=== PATIENT | female | born 1965 | race Caucasian/White ===

== ENCOUNTER 2023-05-16 19:17 | Inpatient (IN) | payer MEDICARE, SELFPAY ==
--- NOTE | ~2023-05-16 | XR_ITS ---
EXAMINATION: Left tibia and fibula and left foot. Clinical indication: Tender to palpate fourth metatarsal with swelling and ecchymosis COMPARISON: None. TECHNIQUE: Left tibia and fibula 2 views. Left foot 3 views. FINDINGS: LEFT TIBIA AND FIBULA: There is no visible fracture, dislocation or subluxation seen. The soft tissues are normal. LEFT FOOT: There is no visible acute fracture, dislocation or subluxation seen. There is mild loss of first MTP joint space. No visible fracture or dislocation seen. The soft tissues are normal. XR/XR foot LT 2V IMPRESSION: 1. Unremarkable left tibia and fibula exam. 2. Unremarkable left foot exam except for mild loss of first MTP joint space. No visible acute fracture or dislocation seen.
--- NOTE | ~2023-05-16 | XR_ITS ---
EXAMINATION: Left tibia and fibula and left foot. Clinical indication: Tender to palpate fourth metatarsal with swelling and ecchymosis COMPARISON: None. TECHNIQUE: Left tibia and fibula 2 views. Left foot 3 views. FINDINGS: LEFT TIBIA AND FIBULA: There is no visible fracture, dislocation or subluxation seen. The soft tissues are normal. LEFT FOOT: There is no visible acute fracture, dislocation or subluxation seen. There is mild loss of first MTP joint space. No visible fracture or dislocation seen. The soft tissues are normal. XR/XR tibia fibula LT 2V IMPRESSION: 1. Unremarkable left tibia and fibula exam. 2. Unremarkable left foot exam except for mild loss of first MTP joint space. No visible acute fracture or dislocation seen.
[2023-05-16 19:27] VITALS: PULSE 108; O2SAT 98; BMI 23.8
--- NOTE | 2023-05-16 20:01 | PC.NURSE ---
pt changed over belongings in pod. pt denies si/hi.
--- NOTE | 2023-05-16 20:09 | ED_ITS ---
HPI - General Adult General Chief complaint: General Medical Stated complaint: PTSD EPISODE,BI POLAR NON-MED COMPLIANT Time Seen by Provider: 05/16/23 20:02 Source: patient Mode of arrival: ambulatory Limitations: no limitations History of Present Illness HPI narrative: 57 year old female with history of bipolar presents to the ED for being found in car being irrational any and unkept. Patient has been noncompliant with his psych meds. Patient denies any suicidal homicidal ideation. Related Data Allergies Allergy/AdvReac Type Severity Reaction Status Date / Time No Known Allergies Allergy Verified 05/16/23 20:08 [facility] Social History Social History Advance Directives: No Advance Directives Information Provided: No Physical Exam ED Vital Signs: BMI result Body Mass Index 23.8 Const General: cooperative, healthy appearing, comfortable, no acute distress and well developed Orientation/consciousness: oriented to person, oriented to place, oriented to time and patient oriented x3 HENMT Head: Yes normal to inspection, Yes No palpable skull fracture present, Yes normocephalic and Yes atraumatic Eyes General: appearance normal, both eyes and all related structures Neck Neck: Yes normal visual inspection, Yes full ROM, Yes no lymphadenopathy, Yes no meningeal signs, Yes trachea midline, Yes supple, No anterior neck swelling and No tender Chest Chest palpation & inspection: normal inspection of the chest and normal palpation of entire chest wall Resp Effort & Inspection: normal respiratory effort and able to speak in complete sentences Auscultation: clear to auscultation bilaterally Cardio Jugular venous distension: no JVD Heart sounds: S1 normal heart sound present and S2 normal heart sound present GI Inspection: Yes normal to inspection Palpation (GI): Soft to palpation, not firm, nontender, no guarding and not rigid General: Yes no CVA tenderness Back/Spine/Pelvis Back: no CVA tenderness and No back tenderness Skin General skin exam: no rashes or lesions noted, elasticity normal and turgor normal Neuro General: oriented to person, oriented to place, oriented to time, patient oriented x3, gait normal, tone normal, moves all extremities, Normal light touch and pain sensation, no meningeal signs, no focal motor deficits, CN's II-XI intact bilaterally and normal sensation to monofilament Extrem General: Yes normal to inspection and Yes full ROM Psych Appearance: disheveled Medical Decision Making Medical Decision Making MDM Narrative: 57 yold female with pmh of bipolar presents to the ED for being noncompliant with her meds and be in her car. Labs ordered. Care consult team placed. 1:55pm: Patient started exposing herself to staff and screaming and being a professional and threatening. Patient was placed in restraints but before was medicated. Differential Diagnosis Differential Diagnoses: The differential diagnosis associated with the presentation includes (Bipolar) Admission/Observation Consideration of admission/observation: Escalation of care including admission/observation considered Consult Healthcare Provider Management of the patient was discussed with: Topographical Field Assistant (Care) Lab Data [facility] Lab Attestation statement: I reviewed the patient's lab results. 05/16/23 20:29 05/16/23 20:29 Labs: Lab Results 05/16/23 Range/Units 20:29 WBC 9.9 (4.8-10.8) X10*3/uL RBC 4.66 (4.20-5.50) X10*6/uL Hgb 14.5 (12.0-16.0) g/dl Hct 43.0 (37.0-47.0) % MCV 92.3 (80.0-98.0) fL MCH 31.1 (27.0-33.0) pg MCHC 33.7 (31.0-35.0) g/dl RDW 13.1 (11.0-16.0) % Plt Count 391 (160-400) X10*3/uL MPV 8.4 L (9.4-12.3) fL Immature Gran % (Auto) 0.3 (0.0-0.4) % Neut % (Auto) 62.1 (45-73) % Lymph % (Auto) 29.5 (20-40) % Reeves % (Auto) 5.4 (2-11) % Eos % (Auto) 2.0 (0-4) % Baso % (Auto) 0.7 (0-2) % Lymph # (Auto) 2.9 (1.2-4.9) X10*3/uL Reeves # (Auto) 0.5 (0.1-1.2) X10*3/uL Eos # (Auto) 0.2 (0.0-0.4) X10*3/uL Baso # (Auto) 0.1 (0.0-0.2) X10*3/uL Abs Immat Gran (auto) 0.03 (0.00-0.03) X10*3/uL Absolute Neuts (auto) 6.1 (2.0-8.3) x10*3/uL Absolute Nucleated RBC 0.000 (0.0-0.012) X10*3/uL Nucleated RBC % (auto) 0.0 (0.0-0.2) /100WBC Sodium 143 (135-145) mmol/L Potassium 3.7 (3.3-5.1) mmol/L Chloride 107 (96-108) mmol/L Carbon Dioxide 25 (22-29) mmol/L Anion Gap 15 (12-20) BUN 12 (9-16) mg/dL Creatinine 0.81 (0.5-1.4) mg/dL Estim Creat Clear Calc 59.8 Estimated GFR > 60 Random Glucose 153 H (60-115) mg/dL Calcium 9.3 (8.4-10.2) mg/dL Total Bilirubin 0.7 (0.0-1.0) mg/dL AST 24 (5-31) U/L ALT 24 (0-31) U/L Alkaline Phosphatase 91 (39-117) U/L Total Protein 7.8 (6.5-8.0) g/dL Albumin 4.4 (3.5-5.0) g/dL Ethyl Alcohol < 10 mg/dL Independent Historian Clinical information obtained from an independent historian. History obtained from or confirmed by: EMS External Record Review External record reviewed: Other (Prior visit) Discharge Plan Discharge Clinical Impression: Bipolar 1 disorder Patient Disposition: Still a Patient Instructions: Bipolar Disorder (ED)
[2023-05-16 20:34] LABS: MANUAL DIFF FLAG NO
[2023-05-16 20:37] LABS: Basophils Absolute Auto 0.1 X10*3/uL (0.0-0.2); Basophils Percent Auto 0.7 % (0-2); Eosinophils Absolute Auto 0.2 X10*3/uL (0.0-0.4); Hemoglobin 14.5 g/dl (12.0-16.0); Imm Gran Abs Auto 0.03 X10*3/uL (0.00-0.03); Imm Gran Pct Auto 0.3 % (0.0-0.4); Lymphocytes Absolute Auto 2.9 X10*3/uL (1.2-4.9); Lymphocytes Percent Auto 29.5 % (20-40); Mean Corpuscular HGB Conc 33.7 g/dl (31.0-35.0); Mean Corpuscular Hemoglobin 31.1 pg (27.0-33.0); Mean Corpuscular Volume 92.3 fL (80.0-98.0); Mean Platelet Volume 8.4 fL (9.4-12.3); Monocytes Absolute Auto 0.5 X10*3/uL (0.1-1.2); Monocytes Percent Auto 5.4 % (2-11); Neutrophils Absolute Auto 6.1 x10*3/uL (2.0-8.3); Neutrophils Percent Auto 62.1 % (45-73); Platelet Count 391 X10*3/uL (160-400); Red Blood Count 4.66 X10*6/uL (4.20-5.50); Red Cell Distribution Width 13.1 % (11.0-16.0); White Blood Count 9.9 X10*3/uL (4.8-10.8)
[2023-05-16 21:00] LABS: Alanine Aminotransferase 24 U/L (0-31); Albumin Level 4.4 g/dL (3.5-5.0); Alkaline Phosphatase 91 U/L (39-117); Anion Gap 15 (12-20); Aspartate Amino Transferase 24 U/L (5-31); Bilirubin Total 0.7 mg/dL (0.0-1.0); Blood Urea Nitrogen 12 mg/dL (9-16); Calcium 9.3 mg/dL (8.4-10.2); Carbon Dioxide 25 mmol/L (22-29); Chloride 107 mmol/L (96-108); Creatinine Clr Calc Pharmacy 59.8; Estimated Glomerular Filt Rate > 60; Ethanol < 10 mg/dL; Glucose Random 153 mg/dL (60-115); Potassium 3.7 mmol/L (3.3-5.1); Sodium 143 mmol/L (135-145); Total Protein 7.8 g/dL (6.5-8.0)
--- NOTE | 2023-05-17 00:35 | MHC.EDTECH ---
pt belongings in locker #1
--- NOTE | 2023-05-17 01:45 | PC.NURSE ---
patient to express her displeasure of our non locking bathroom door by exposing her naked posterior in an offensive fashion to staff. client makes many statements how she doesnt feel she likes our services i didnt get xrays, i need an IV underwriting support manager attempt to help client to obtain urine sample.
[2023-05-17 01:55] VITALS: RESP 13
[2023-05-17] MEDS: Haloperidol Lactate 5 MG/ML VIAL IM (01:55)
[2023-05-17] MEDS: LORazepam 2 MG/ML VIAL IM (01:55)
[2023-05-17] MEDS: diphenhydrAMINE HCL 50 MG/ML VIAL IM (01:55)
[2023-05-17 02:10] VITALS: BP 147/85; PULSE 100; RESP 18; O2SAT 96
[2023-05-17 02:25] VITALS: BP 149/90; PULSE 97; RESP 18; O2SAT 96
--- NOTE | 2023-05-17 02:30 | PC.NURSE ---
patient escalated posturing twoards staff singing loudly to express displeasure and obtain
[2023-05-17 02:40] VITALS: BP 128/84; PULSE 84; RESP 16; O2SAT 96
--- NOTE | 2023-05-17 11:22 | PC.NURSE ---
Patient just woke up asked when breakfast will be here. Told her breakfast is already in her room. Asked if she is going to use the restroom we need a urine sample. Patient states forgot to void in the cup.
--- NOTE | 2023-05-17 12:51 | PC.NURSE ---
Mother of patient called left tel# [phone] Maryam Edmondson states she lives in [place].
--- NOTE | 2023-05-17 13:08 | PC.NURSE ---
Dr. Burrows notified patient is getting irate wants vape or smoke cigarettes or would like a valium started banging on glass. called security they spoke to her. Care team came at about 1334 to speak to patient. ? need for nicotine replacement.
[2023-05-17] MEDS: Nicotine 21 MG PATCH.TD24 TRANSDERMA (14:12)
[2023-05-17 14:36] LABS: Appearance Urine Cloudy; Color Urine Yellow; Glucose Urine UA Negative (Negative); Leukocyte Esterase Urine Large (3+) (Negative); Nitrite Urine Negative (Negative); PH 5.5 (5.0-9.0); Specific Gravity - Urine 1.015 (1.005-1.025); UMIC TRIGGER UACC YES; Urine Blood Small (1+) (Negative); Urine Ketones Negative (Negative); Urine Protein 30 (1+) mg/dL (Neg-Trace)
[2023-05-17 14:39] LABS: UPreg QC Valid YES; Urine Pregnancy NEGATIVE (NEGATIVE)
[2023-05-17 14:42] LABS: Amphetamine Screen Urine Not Detected (Not Detect); Barbiturates, Urine Not Detected (Not Detect); Benzodiazepines Screen Urine Not Detected (Not Detect); Cannabinoid Screen Urine POSITIVE (Not Detect); Cocaine Screen Urine Not Detected (Not Detect); Fentanyl, urine Not Detected (Not Detect); Opiate Screen Urine Not Detected (Not Detect); Phencyclidine Screen Urine Not Detected (Not Detect)
[2023-05-17 14:51] LABS: Bacteria Urine 1+ (None Seen); Hyaline Casts Urine 0-2 /LPF (0-2); RBC Urine 0-2 /HPF (0-2); UACC Culture Trigger YES; WBC Urine >50 /HPF (0-5)
[2023-05-17] MEDS: Nicotine Polacrilex 2 MG GUM BUCCAL (15:08)
[2023-05-17 15:33] LABS: COVID-19 Test Negative (Negative); IDNOW Serial# 152EDE1D
--- NOTE | 2023-05-17 19:16 | MHC.CARE ---
Received call from patient's yesi Reardon. [facility] is [facility] in [place], [place]
--- NOTE | 2023-05-17 19:20 | PC.NURSE ---
Pt handed a note with instructions for the medications she will and woon't take. Per note: pt will take zyprexa for sleep, ativan for anxiety, and a pediatric dose of lithium. Pt will not take wellbutrin (hard to ween off), seroquil (SI off 2 doses), and prozac (it doesn't work). [facility] is [facility] in [place], [place]
[2023-05-17 19:56] VITALS: BP 148/74; PULSE 95; RESP 16; TEMP 36.4; O2SAT 98
--- NOTE | 2023-05-17 19:57 | PC.NURSE ---
Addendum entered by Dawna Estes RN 05/17/23 20:27: RN from stated to hold on giving medications, and pt will be medicated upstairs Original Note: Visitor left, report given to Ms, they are on their way to receive the pt.
--- NOTE | 2023-05-17 19:58 | MHC.EDTECH ---
This tech took over care AT 1900. PT visitor left. PT vitals were taken at this time. PT was calm, cooperative and soni in bed. PT is waiting to be transported on to floor.
[2023-05-17] MEDS: diazePAM 5 MG TABLET PO (23:44)
--- NOTE | 2023-05-18 | ECG_ITS ---
Test Reason : qtc check Blood Pressure : / mmHG Vent. Rate : 089 BPM Atrial Rate : 089 BPM P-R Int : 126 ms QRS Dur : 080 ms QT Int : 358 ms P-R-T Axes : 041 052 029 degrees QTc Int : 435 ms Normal sinus rhythm Normal ECG No previous ECGs available Referred By: Ana Cardona Electronically Signed By:Milad Mercer
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
[2023-05-18] MEDS: Nicotine Polacrilex 2 MG GUM BUCCAL (03:19)
[2023-05-18] MEDS: Acetaminophen 325 MG TABLET 650 MG PO (05:46)
[2023-05-18 08:15] VITALS: BP 167/79; PULSE 83; RESP 20; TEMP 36.4; O2SAT 99
[2023-05-18 08:33] LABS: Alanine Aminotransferase 28 U/L (0-31); Albumin Level 4.3 g/dL (3.5-5.0); Alkaline Phosphatase 85 U/L (39-117); Anion Gap 12 (12-20); Aspartate Amino Transferase 31 U/L (5-31); Bilirubin Total 0.3 mg/dL (0.0-1.0); Blood Urea Nitrogen 19 mg/dL (9-16); Calcium 9.3 mg/dL (8.4-10.2); Carbon Dioxide 26 mmol/L (22-29); Chloride 104 mmol/L (96-108); Cholesterol 176 mg/dL (<200); Creatinine Clr Calc Pharmacy 57.7; Estimated Glomerular Filt Rate > 60; Glucose Fasting 147 mg/dL (60-99); HDL Cholesterol 34 mg/dL (>40); LDL Cholesterol Calculated 109 mg/dL (<100); Potassium 3.9 mmol/L (3.3-5.1); Sodium 138 mmol/L (135-145); Total Protein 7.3 g/dL (6.5-8.0); Triglycerides 167 mg/dL (<150)
--- NOTE | 2023-05-18 10:24 | PC.NURSE ---
Patient refused the Influenza vaccination.
[2023-05-18] MEDS: LORazepam 1 MG TABLET PO (12:45)
[2023-05-18] MEDS: OLANZapine ODT 10 MG TAB.RAPDIS TRANSLINGU (12:45)
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
[2023-05-18] MEDS: Lithium Carbonate 300 MG TABLET 150 MG PO (16:05)
[2023-05-18 21:02] VITALS: BP 131/87; PULSE 75; RESP 16; TEMP 36.1; O2SAT 99
[2023-05-18] MEDS: levoFLOXacin 250 MG TABLET PO (22:51)
--- NOTE | 2023-05-18 22:53 | PC.NURSE ---
Kayla refused her HS lithium and Zyprexa stating that she was too sedated to take any other medication.
[2023-05-19] MEDS: Nicotine Polacrilex Lozenge 4 MG LOZENGE BUCCAL (04:37)
[2023-05-19 07:58] VITALS: BP 188/87; PULSE 82; RESP 18; TEMP 36.2; O2SAT 99
[2023-05-19] MEDS: Lithium Carbonate 300 MG TABLET 150 MG PO ×2 (08:25→20:30)
[2023-05-19] MEDS: LORazepam 1 MG TABLET PO (11:51)
[2023-05-19 12:39] LABS: TSH reflex Free T4 3.17 uIU/mL (0.32-4.0)
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
[2023-05-19] MEDS: levoFLOXacin 250 MG TABLET PO (14:51)
[2023-05-19 16:22] VITALS: BP 190/96; PULSE 90; RESP 17; TEMP 36.2; O2SAT 97
[2023-05-19] MEDS: Nicotine Polacrilex Lozenge 2 MG LOZENGE BUCCAL ×2 (16:45→20:34)
[2023-05-19] MEDS: LORazepam 0.5 MG TABLET PO (20:30)
[2023-05-19] MEDS: OLANZapine ODT 10 MG TAB.RAPDIS TRANSLINGU (20:30)
[2023-05-19 21:58] VITALS: BP 186/86; PULSE 90
[2023-05-20 08:00] VITALS: BP 189/97; PULSE 102; RESP 18; TEMP 36.3; O2SAT 95
[2023-05-20] MEDS: Lithium Carbonate 300 MG TABLET 150 MG PO ×2 (08:09→19:49)
[2023-05-20] MEDS: OLANZapine 5 MG TABLET PO (08:09)
[2023-05-20] MEDS: LORazepam 0.5 MG TABLET PO ×2 (08:09→19:49)
[2023-05-20] MEDS: levoFLOXacin 250 MG TABLET PO (15:15)
[2023-05-20] MEDS: amLODIPine Besylate 2.5 MG TABLET PO (15:15)
[2023-05-20 15:16] VITALS: BP 182/97
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
[2023-05-20 18:00] VITALS: BP 185/93; PULSE 108; RESP 16
[2023-05-20] MEDS: OLANZapine ODT 10 MG TAB.RAPDIS TRANSLINGU (19:50)
[2023-05-20] MEDS: amLODIPine Besylate 5 MG TABLET PO (19:53)
--- NOTE | 2023-05-21 | ECG_ITS ---
Test Reason : qtc Blood Pressure : / mmHG Vent. Rate : 075 BPM Atrial Rate : 075 BPM P-R Int : 156 ms QRS Dur : 080 ms QT Int : 390 ms P-R-T Axes : 057 050 055 degrees QTc Int : 435 ms Normal sinus rhythm Normal ECG When compared with ECG of 18-MAY-2023 13:15, No significant change was found Referred By: Ana Cardona Electronically Signed By:Milad Mercer
[2023-05-21] MEDS: OLANZapine ODT 10 MG TAB.RAPDIS TRANSLINGU (00:41)
[2023-05-21 06:00] VITALS: BP 197/90; PULSE 87; RESP 18; TEMP 36.6; O2SAT 98
[2023-05-21] MEDS: Lithium Carbonate 300 MG TABLET 150 MG PO ×2 (09:04→19:56)
[2023-05-21] MEDS: OLANZapine 5 MG TABLET PO (09:04)
[2023-05-21] MEDS: LORazepam 0.5 MG TABLET PO (09:04)
[2023-05-21] MEDS: amLODIPine Besylate 2.5 MG TABLET PO (09:04)
[2023-05-21 11:14] VITALS: BMI 25.5
--- NOTE | 2023-05-21 15:37 | HO.PSYCHPN ---
Subjective Subjective Date of Service: 05/21/23 Reason For Visit: Deidre Subjective Notes: Conditional Voluntary and 3 Day Healthcare Proxy: No Guardianship: No Medical Problems Affecting Mental Status: No Interim History: Pt seen and discussed in team; Pt presents less elevated; patient is less irritable. She presents with some sleepiness and reports feeling a little sedated. staff report she slept 3 hours last night; Pt compliant with medications. pt denies any UTI symptoms- no urgency, no pain or burning upon urination. [facility] agitated with staff at times. She denies SI or HI. Wants to leave hospital and go back to her fiancee's house. When asked about medication compliance after discharge she says she'll take the medication if she thinks she needs them. She reports she is only upset because she is here in the hospital. She is focused on discharge tomorrow. Pt is eating and drinking fluids. She denies auditory or visual hallucinations. She denies suicidal or homicidal ideation. She denies depression. discussed continued treatment after discharge which patient states she is interested in. Pt continues to have mood symptoms but not able to be committed. Medication Compliance: Yes Side effects from medications: Yes (daytime sleepiness) Attending Groups: Intermittent Review of Systems Acute medical concerns: No Medical Review of Systems: unchanged Review of Systems Review of Systems Yes all other systems are reviewed and are negative Musculoskeletal: Reports other (left ankle with swelling and ecchymosis) Mental Status Exam Mental Status Exam Patient Appearance: Disheveled and Unkempt Patient Orientation: Person, Place and Situation Level of Consciousness: Awake and Restless Patient Behavior: Talkative, Hyperactive, Restless, Invasion - Personal Space and Distractible Mood Description: Labile and Angry Affect Description: Labile and Expansive Patient Cognition Impaired: Yes Ability to Follow Directions: Fair Speech Pattern: Perseverating, Rambling, Excessive, Animated and Pressured Memory Description: Episodic Impaired Hallucinations: None Delusions: Not Present Thought Process: Distracted Thought Content: positive for Goal Oriented Judgement: Poor Judgement and Insight: poor insight into illness poor judgment Diagnostics Vital Signs (24Hr): Vital Signs - 24 hr 05/20/23 18:00 05/21/23 06:00 Temperature 97.9 F Pulse Rate 108 H 87 Respiratory Rate 16 18 Blood Pressure 185/93 H 197/90 H Pulse Oximetry 98 Oxygen Delivery Method Room Air BMI result Body Mass Index 25.5 Labs 05/16/23 20:29 05/18/23 08:04 Imaging Radiology Impressions: ITS Impressions Foot X-Ray 05/18/23 14:32 IMPRESSION: 1. Unremarkable left tibia and fibula exam. 2. Unremarkable left foot exam except for mild loss of first MTP joint space. No visible acute fracture or dislocation seen. Tibia/Fibula X-Ray 05/18/23 14:32 IMPRESSION: 1. Unremarkable left tibia and fibula exam. 2. Unremarkable left foot exam except for mild loss of first MTP joint space. No visible acute fracture or dislocation seen. Medications Medications Current Medications Acetaminophen (Acetaminophen 325 Mg Tablet) 650 mg PO Q6H PRN PRN Reason: Headache/Pain Mild Scale (1-3) Last Admin: 05/18/23 05:46 Dose: 650 mg Al Hydroxide/Mg Hydroxide (Magnesium Hydrox/Alum Hydrox 30 Ml Oral.Susp) 30 ml PO Q6H PRN PRN Reason: Heartburn/Nausea Amlodipine Besylate (Amlodipine Besylate 2.5 Mg Tablet) 2.5 mg PO DAILY [facility]; Protocol Last Admin: 05/21/23 09:04 Dose: 2.5 mg Ibuprofen (Ibuprofen 600 Mg Tablet) 600 mg PO Q6H PRN PRN Reason: pain and swelling lle [place] Carbonate ([place] Carbonate 300 Mg Tablet) 150 mg PO BID [facility] Last Admin: 05/21/23 09:04 Dose: 150 mg Lorazepam (Lorazepam 0.5 Mg Tablet) 0.5 mg PO Q6H PRN PRN Reason: anxiety/restlessness Lorazepam (Lorazepam 0.5 Mg Tablet) 0.25 mg PO BID [facility] Magnesium Hydroxide (Milk Of Magnesia 30 Ml Oral.Susp) 30 ml PO DAILY PRN PRN Reason: Constipation Nicotine Polacrilex (Nicotine Polacrilex Lozenge 2 Mg Lozenge) 2 mg BUCCAL Q2H PRN PRN Reason: tobacco Last Admin: 05/19/23 20:34 Dose: 2 mg Olanzapine (Olanzapine Odt 10 Mg Tab.Rapdis) 10 mg TRANSLINGU BEDTIME [facility]ON[facility] Last Admin: 05/20/23 19:50 Dose: 10 mg Olanzapine (Olanzapine Odt 10 Mg Tab.Rapdis) 10 mg TRANSLINGU DAILY PRN PRN Reason: deidre Last Admin: 05/21/23 00:41 Dose: 10 mg Olanzapine (Olanzapine 5 Mg Tablet) 5 mg PO DAILY [facility]ON[facility] Last Admin: 05/21/23 09:04 Dose: 5 mg Allergies Allergies Allergy/AdvReac Type Severity Reaction Status Date / Time No Known Allergies Allergy Verified 05/16/23 20:08 Assessment & Plan Assessment & Plan (1) Pain and swelling of left lower extremity: Status: Acute Code(s): M79.605 - Pain in left leg; M79.89 - Other specified soft tissue disorders (2) Bipolar I disorder with deidre: Status: Acute Code(s): F31.10 - Bipolar disorder, current episode manic without psychotic features, unspecified (3) Anxiety: Status: Acute Code(s): F41.9 - Anxiety disorder, unspecified Plan 57 year old female admitted to psychiatry with consult placed to hospitalist service for evaluation of pain and swelling of the LLE. Pt reports she was running in heels and tripped wtih inversion injury of the left ankle. per hospitalist consult for left jyothi: -XR as above -ibuprofen q6h prn for pain and swelling, can alternate with tylenol prn -recommend compression- soraya stocking ordered -Ice, elevation as needed -plan to be adjusted as indicated pending xr results psychiatry: 05/20/23 3 day notice signed up on Thursday 15 min checks encourage medication compliance continue olanzepine 5 mg in am continue zydis 10 mg at bedtime ativan 0.5mg BID Amlodipine Besylate (Amlodipine Besylate 2.5 Mg Tablet) 2.5 mg PO DAILY LEONOR; for HTN consider increase lithium if tolerates. encourage food and fluids continue to collect collateral information discharge planning with team 05/21/23 reduce ativan dose to 0.25mg BID and 0.5mg daily PRN due to daytime sedation discharge planning for tomorrow Patient educated on: diagnosis, medication risk/benefits and therapeutic strategies Informed Consent: does not understand Reason for continued inpatient stay Substantial Risk for: inability to function and rapid decompensation Time Spent With Patient Time: Total time managing care of this patient today ___30_ minutes.
[2023-05-21 18:00] VITALS: BP 169/82; PULSE 74; RESP 16; TEMP 36.6; O2SAT 99
[2023-05-21] MEDS: LORazepam 0.5 MG TABLET 0.25 MG PO (19:55)
[2023-05-21] MEDS: Nicotine Polacrilex 2 MG GUM BUCCAL (21:10)
[2023-05-22] MEDS: LORazepam 0.5 MG TABLET PO (02:39)
[2023-05-22] MEDS: Nicotine Polacrilex 2 MG GUM BUCCAL (02:39)
[2023-05-22 08:04] VITALS: BP 154/74; PULSE 98; RESP 18; TEMP 36.3; O2SAT 98
[2023-05-22] MEDS: amLODIPine Besylate 2.5 MG TABLET PO (08:12)
[2023-05-22] MEDS: OLANZapine 5 MG TABLET PO (08:12)
[2023-05-22] MEDS: LORazepam 0.5 MG TABLET 0.25 MG PO (08:13)
[2023-05-22] MEDS: Lithium Carbonate 300 MG TABLET 150 MG PO (08:13)
[2023-05-22 09:41] LABS: Alanine Aminotransferase 34 U/L (0-31); Albumin Level 4.1 g/dL (3.5-5.0); Alkaline Phosphatase 81 U/L (39-117); Anion Gap 12 (12-20); Aspartate Amino Transferase 25 U/L (5-31); Bilirubin Total 0.3 mg/dL (0.0-1.0); Blood Urea Nitrogen 12 mg/dL (9-16); Calcium 9.5 mg/dL (8.4-10.2); Carbon Dioxide 24 mmol/L (22-29); Chloride 108 mmol/L (96-108); Creatinine Clr Calc Pharmacy 82.4; Estimated Glomerular Filt Rate > 60; Glucose Fasting 92 mg/dL (60-99); Potassium 4.1 mmol/L (3.3-5.1); Sodium 140 mmol/L (135-145); Total Protein 7.1 g/dL (6.5-8.0)
[2023-05-22 09:42] LABS: Lithium 0.62 mmol/L (0.60-1.20)
--- NOTE | 2023-05-22 09:50 | P.DS_ITS ---
DS: Providers Provider Date of Service: 05/22/23 Date of admission: 05/17/23 19:18 Date of discharge: 05/22/23 Primary care physician: Unknown Physician Admitting clinician: Ana Cardona Attending physician on admission: Ana Cardona Consults: 05/18/23 12:34 Consult to Hospitalist Routine Comment: Consulting Provider: Hospitalist Reason For Exam: painful swollen left ankle Attending physician on discharge: Ana Cardona Discharging clinician: Ana Cardona DS: Diagnosis Discharge Diagnosis (1) Pain and swelling of left lower extremity: Start time: 19:30 Status: Acute (2) Bipolar I disorder with deidre: Start date: 05/17/23 Start time: 19:30 Status: Acute (3) Anxiety: Start date: 05/17/23 Start time: 19:30 Status: Acute DS: Medications Discharge Medications Home Medications: Previous Rx's Medication Instructions Recorded amlodipine 2.5 mg tablet 2.5 mg PO DAILY #15 tabs 05/22/23 lithium carbonate 300 mg tablet 150 mg (1/2 x 300 mg) PO BID #30 05/22/23 tabs lorazepam 0.5 mg tablet 0.25 mg (1/2 x 0.5 mg) PO BID #30 05/22/23 tabs olanzapine 10 mg disintegrating 10 mg translingual DAILY PRN deidre 05/22/23 tablet #15 tabs olanzapine 5 mg tablet 5 mg PO DAILY #15 tabs 05/22/23 Mental Status Exam Mental Status Exam Patient Appearance: Appropriate Patient Orientation: Person, Place and Situation Level of Consciousness: Awake and Drowsy Patient Behavior: Appropriate Mood Description: Angry Affect Description: Angry Patient Cognition Impaired: Yes Ability to Follow Directions: Fair Speech Pattern: Clear Memory Description: Episodic Impaired Hallucinations: None Thought Process: Goal Oriented Thought Content: positive for Goal Oriented Judgement: Poor Data Data Completed and Pending Completed studies during hospitalization [Text1]: 05/16/23 05/17/23 05/17/23 20:29 14:29 15:09 WBC 9.9 RBC 4.66 Hgb 14.5 Hct 43.0 MCV 92.3 MCH 31.1 MCHC 33.7 RDW 13.1 Plt Count 391 MPV 8.4 L Immature Gran % (Auto) 0.3 Neut % (Auto) 62.1 Lymph % (Auto) 29.5 [place] % (Auto) 5.4 Eos % (Auto) 2.0 Baso % (Auto) 0.7 Lymph # (Auto) 2.9 [place] # (Auto) 0.5 Eos # (Auto) 0.2 Baso # (Auto) 0.1 Abs Immat Gran (auto) 0.03 Absolute Neuts (auto) 6.1 Absolute Nucleated RBC 0.000 Nucleated RBC % (auto) 0.0 Sodium 143 Potassium 3.7 Chloride 107 Carbon Dioxide 25 Anion Gap 15 BUN 12 Creatinine 0.81 Estim Creat Clear Calc 59.8 Estimated GFR > 60 Random Glucose 153 H Fasting Glucose Calcium 9.3 Total Bilirubin 0.7 AST 24 ALT 24 Alkaline Phosphatase 91 Total Protein 7.8 Albumin 4.4 Triglycerides Cholesterol LDL Cholesterol, Calc HDL Cholesterol TSH Urine Color Yellow Urine Appearance Cloudy Urine pH 5.5 Ur Specific [place] 1.015 Urine Protein 30 (1+) H Urine Glucose (UA) Negative Urine Ketones Negative Urine Blood Small (1+) H Urine Nitrite Negative Ur Leukocyte Esterase Large (3+) H Urine RBC 0-2 Urine WBC >50 H Ur Squamous Epith Cells 3-5 Urine Bacteria 1+ Hyaline Casts 0-2 Urine Test NEGATIVE Urine Opiates Screen Not Detected Urine Fentanyl Screen Not Detected Ur Barbiturates Screen Not Detected Ur Phencyclidine Scrn Not Detected Ur Amphetamines Screen Not Detected U Benzodiazepines Scrn Not Detected [place] Urine Cocaine Screen Not Detected U Marijuana (THC) Screen POSITIVE H Ethyl Alcohol < 10 COVID-19 ([facility]) Negative COVID-19 Clin Com See Note 05/18/23 05/22/23 08:04 08:45 WBC RBC Hgb Hct MCV MCH MCHC RDW Plt Count MPV Immature Gran % (Auto) Neut % (Auto) Lymph % (Auto) [place] % (Auto) Eos % (Auto) Baso % (Auto) Lymph # (Auto) [place] # (Auto) Eos # (Auto) Baso # (Auto) Abs Immat Gran (auto) Absolute Neuts (auto) Absolute Nucleated RBC Nucleated RBC % (auto) Sodium 138 140 Potassium 3.9 4.1 Chloride 104 108 Carbon Dioxide 26 24 Anion Gap 12 12 BUN 19 H 12 Creatinine 0.84 0.65 Estim Creat Clear Calc 57.7 82.4 Estimated GFR > 60 > 60 Random Glucose Fasting Glucose 147 H 92 Calcium 9.3 9.5 Total Bilirubin 0.3 0.3 AST 31 25 ALT 28 34 H Alkaline Phosphatase 85 81 Total Protein 7.3 7.1 Albumin 4.3 4.1 Triglycerides 167 H Cholesterol 176 LDL Cholesterol, Calc 109 H HDL Cholesterol 34 L TSH 3.17 Urine Color Urine Appearance Urine pH Ur Specific [place] Urine Protein Urine Glucose (UA) Urine Ketones Urine Blood Urine Nitrite Ur Leukocyte Esterase Urine RBC Urine WBC Ur Squamous Epith Cells Urine Bacteria Hyaline Casts Urine Test Urine Opiates Screen Urine Fentanyl Screen Ur Barbiturates Screen Ur Phencyclidine Scrn Ur Amphetamines Screen U Benzodiazepines Scrn [place] 0.62 Urine Cocaine Screen U Marijuana (THC) Screen Ethyl Alcohol COVID-19 ([facility]) COVID-19 Clin Com 05/17/23 Unknown Urine clean catch - Clean Catch Midstream Urine Culture - Final Escherichia coli Imaging Diagnostic Imaging Impressions Foot X-Ray 05/18/23 14:32 IMPRESSION: 1. Unremarkable left tibia and fibula exam. 2. Unremarkable left foot exam except for mild loss of first MTP joint space. No visible acute fracture or dislocation seen. Tibia/Fibula X-Ray 05/18/23 14:32 IMPRESSION: 1. Unremarkable left tibia and fibula exam. 2. Unremarkable left foot exam except for mild loss of first MTP joint space. No visible acute fracture or dislocation seen. Cardiology Testing EKG NS DS: Summary Hospital Course Hospital Course: Patient was admitted on 05/16 for acute deidre. She was started on medication lithium and Zyprexa. She was compliant with medications. her mood was less elevated although she remained irritable. She was seen for medical consult due to swollen ankle x-ray showed no fracture. The swelling remitted during her stay. She continued to sleep poorly at night but slept during the day. She accepted referrals for outpatient care. Time spent discussing smoking cessation with patient: 3 to 10 minutes Status at Discharge Cognitive/behavioral status at discharge: Patient was alert and oriented. She appeared sleepy as she continued to only sleep 3-4 hours a night and nap during the daytime. She continued to be irritable. No pressured speech no psychosis she denied SI and HI. Her insight regarding her illness continued to be poor. She did accept referrals for outpatient care. Functional status at discharge: independent ambulation Overall status at discharge: patient is back to baseline Time Spent with Patient Time attestation: Total time managing care of this patient today _25___ minutes. Time spent: Less than 30 minutes Discharge Plan Discharge Anticipated Discharge Date/Time: 05/22/23 11:00 Patient Disposition: Home, Self-Care Discharge Diagnosis: Bipolar Disorder Referrals: [facility] [Other] - 1 Week (referral for outpatient mental health and psychiatric medication management services Agency will follow-up on referral after discharge to provide pateint with diagnostic evaluation appointment ) [facility] ([place]) [Other] - 1 Week (Information for Crisis Services in [facility]. Patient may call should she need support in addressing mental health concerns or seeking services.) Physician,Unknown J [Primary Care Provider] - (The hospital can forward your records to the PCP of your choice. Contact [facility] when you are ready.) Discharge Medications: New olanzapine 5 mg Tablet 5 mg PO DAILY Qty: 15 0RF amlodipine 2.5 mg Tablet 2.5 mg PO DAILY Qty: 15 0RF Protocol: Hold for SBP< HOLD for SBP < : 90 lorazepam 0.5 mg Tablet 0.25 mg PO BID Qty: 30 0RF olanzapine 10 mg Tablet,Disintegrating 10 mg translingual DAILY PRN (Reason: deidre) Qty: 15 0RF lithium carbonate 300 mg Tablet 150 mg PO BID Qty: 30 0RF Discontinued cefdinir 300 mg capsule 300 mg PO BID Patient Comments: patient not taking Discharge Orders: Discharge Order (Routine); Ordered 05/22/23 Ordered By: Ana Cardona Activity on Discharge: As tolerated Stand Alone Forms: Patient Portal Discharge page, Community Support Care Plan Goals: take medications as prescribed follow up with outpatient providers/supports Health Concerns: Hypertension/ high Blood pressure Bipolar disorder Plan of Treatment: continue medications as prescribed follow up with outpatient appointments followup with primary care for high blood pressure Assessment: alert and oriented, labile, irritable. no SI or Hi, no auditory or visual hallucinations. pt need continued outpatient treatmetn Patient Instructions: Bipolar Disorder (ED) Discharge Date/Time: 05/22/23 11:11
== END 2023-05-22 11:11 | disposition home or self-care (01) | DRG 885 ==
LOC: HO.ED 05-17 12:50 → HO.PM5 05-17 19:34
PROVIDERS: Physician Assistant; Admitting Provider Psychiatry & Neurology Psychiatry; Emergency Provider Emergency Medicine; Visit Provider Clinical Nurse Specialist Psychiatric/Mental Health
DX: F31.10 Bipolar disorder, current episode manic without psychotic features, unspecified (principal); F17.210 Nicotine dependence, cigarettes, uncomplicated; M79.672 Pain in left foot; F41.9 Anxiety disorder, unspecified; Z20.822 Contact with and (suspected) exposure to COVID-19; Z71.6 Tobacco abuse counseling; Z91.148 Patient's other noncompliance with medication regimen for other reason; Z79.899 Other long term (current) drug therapy
CPT/HCPCS: 36415; 73590; 73620; 80053; 80061; 80178; 80307; 81001; 81025; 84443; 85025; 87086; 87088; 87186; 87635; 93005; 99285; J1200; J1630; J2060; S9485

== ENCOUNTER 2023-05-17 19:18 | Outpatient (BNV) | payer MEDICARE, SELFPAY | END 2023-05-21 16:00 | PROVIDERS: Admitting Provider Psychiatry & Neurology Psychiatry; Emergency Provider Emergency Medicine; Visit Provider Internal Medicine Cardiovascular Disease | DX: I45.9 Conduction disorder, unspecified (principal) | CPT/HCPCS: 93010 ==

== ENCOUNTER 2023-05-17 19:18 | Outpatient (BNV) | payer MEDICARE, SELFPAY | END 2023-05-18 13:15 | PROVIDERS: Admitting Provider Psychiatry & Neurology Psychiatry; Emergency Provider Emergency Medicine; Visit Provider Internal Medicine Cardiovascular Disease | DX: R41.82 Altered mental status, unspecified (principal); F31.10 Bipolar disorder, current episode manic without psychotic features, unspecified | CPT/HCPCS: 93010 ==

== ENCOUNTER → 2023-05-17 19:18 | Outpatient (BNV) | payer OTHER, SELFPAY | PROVIDERS: Admitting Provider Psychiatry & Neurology Psychiatry; Emergency Provider Emergency Medicine; Visit Provider Physician Assistant | DX: M79.605 Pain in left leg (principal); M79.89 Other specified soft tissue disorders | CPT/HCPCS: 99222 ==

== ENCOUNTER → 2023-05-17 19:18 | Outpatient (BNV) | payer MEDICARE, SELFPAY | PROVIDERS: Admitting Provider Psychiatry & Neurology Psychiatry; Emergency Provider Emergency Medicine; Visit Provider Clinical Nurse Specialist Psychiatric/Mental Health | DX: F31.10 Bipolar disorder, current episode manic without psychotic features, unspecified (principal); F41.9 Anxiety disorder, unspecified; M79.605 Pain in left leg; M79.89 Other specified soft tissue disorders | CPT/HCPCS: 90792; 99232; 99233; 99238 ==